=== PATIENT | female | born 1990 ===

== ENCOUNTER 2021-07-04 15:36 | Observation (INO) | payer SELFPAY ==
[2021-07-04] MEDS ORDERED: HYDROmorphone 0.5 MG/0.5 ML Syringe IVPUSH ONE (15:50)
[2021-07-04] MEDS ORDERED: Lactated Ringers 1,000 ML IV ONE (15:50)
[2021-07-04] MEDS ORDERED: Ondansetron 4 MG/2 ML SDV IVPUSH ONE (15:50)
[2021-07-04] MEDS: Lactated Ringers 1,000 ML IV SCH ×3 (17:46→23:25)
[2021-07-04] MEDS ORDERED: ceFAZolin 2 GM in Sodium Chloride 0.9% 50 ML IV ONE (18:13)
[2021-07-04] MEDS ORDERED: Rocuronium 50 MG/5 ML Vial ONE (18:39)
[2021-07-04] MEDS ORDERED: Ondansetron 4 MG/2 ML SDV ONE (18:39)
[2021-07-04] MEDS ORDERED: Propofol 200 MG/20 ML SDV ONE (18:39)
[2021-07-04] MEDS ORDERED: Dexamethasone 4 MG/ML 5 ML MDV ONE (18:39)
[2021-07-04] MEDS ORDERED: Succinylcholine/Sod PF 100 MG/5 ML SYRINGE IV ONE (18:39)
[2021-07-04] MEDS ORDERED: fentaNYL 250 MCG/5 ML SDV ONE (18:40)
[2021-07-04] MEDS ORDERED: ceFAZolin 1 GM Vial ONE (18:42)
[2021-07-04] MEDS ORDERED: Midazolam 1 MG/ML 2 ML SDV ONE (19:06)
[2021-07-04] MEDS: Bupivacaine 0.5% 30 ML SDV ONE ×2 (19:50→20:03)
[2021-07-04] MEDS ORDERED: Sodium Chloride 0.9% 1,000 ML ONE (20:02)
[2021-07-04] MEDS ORDERED: diphenhydrAMINE 50 MG/ML SDV ONE (20:15)
[2021-07-04] MEDS ORDERED: HYDROmorphone 0.5 MG/0.5 ML Syringe ONE ×2 (20:27→20:31)
[2021-07-04] MEDS ORDERED: Ketorolac 30 MG/ML SDV ONE (20:27)
[2021-07-04] MEDS ORDERED: fentaNYL 100 MCG/2 ML SDV IVPUSH PRN (21:18)
[2021-07-04] MEDS ORDERED: Ondansetron 4 MG/2 ML SDV IVPUSH PRN (21:18)
[2021-07-04] MEDS ORDERED: HYDROmorphone 0.5 MG/0.5 ML Syringe IVPUSH PRN (21:18)
[2021-07-04] MEDS ORDERED: Acetaminophen/oxyCODONE 325-5 MG Tab PO PRN (23:06)
[2021-07-04] MEDS: Acetaminophen/oxyCODONE 325-5 MG Tab PO PRN (23:21)
[2021-07-05] MEDS: Ibuprofen 600 MG Tab PO PRN ×2 (03:36→10:14)
[2021-07-05] MEDS: Acetaminophen/oxyCODONE 325-5 MG Tab PO PRN ×2 (06:16→12:15)
[2021-07-05] MEDS: Lactated Ringers 1,000 ML IV SCH (06:20)
[2021-07-05] MEDS ORDERED: Benzocaine/Cetylpyridinium/Menthol Lozenge MUCMEM PRN (08:34)
[2021-07-05] MEDS ORDERED: Docusate Sodium 100 MG Cap PO SCH (09:00)
== END 2021-07-05 11:48 | disposition home or self-care (01) ==
LOC: JD.ED 15:36 → JD.SDS 17:50 → JD.MS 21:35
PROVIDERS: ADMIT Obstetrics & Gynecology; ATTEND Obstetrics & Gynecology
DX: O00.90 Unspecified ectopic pregnancy without intrauterine pregnancy (principal); O00.109 Unspecified tubal pregnancy without intrauterine pregnancy; N83.8 Other noninflammatory disorders of ovary, fallopian tube and broad ligament; N83.12 Corpus luteum cyst of left ovary; E66.9 Obesity, unspecified; Z87.891 Personal history of nicotine dependence; Z68.37 Body mass index [BMI] 37.0-37.9, adult
CPT/HCPCS: 00840; 36415; 76817; 76817-26; 80053; 81001; 83735; 85025; 86140; 86850; 86900; 86901; 96374; 96375; 99140; 99285; 99285-25; A9270-GY; G0378; J0330; J0690; J1100; J1170; J1200; J1885; J2250; J2370; J2405; J2704; J2710; J3010; J3490; J7030; J7120